=== PATIENT | female | born 1950 | race Caucasian/White ===

== ENCOUNTER 2022-09-24 10:44 | Inpatient (IN) | payer MEDICARE ==
[~2022-09-24] VITALS: Ht 170.2 cm; Wt 63.5 kg
[2022-09-24 11:24] LABS: BASOPHILS # (AUTO) 0.05 K/uL (0.00-0.20); BASOPHILS % (AUTO) 0.7 % (0.0-5.0); EOSINOPHILS # (AUTO) 0.06 K/uL (0.00-0.70); EOSINOPHILS % (AUTO) 0.8 % (0.0-8.0); IMMATURE GRANULOCYTE ABSOLUTE 0.02 K/uL (0-1); LYMPHOCYTES % (AUTO) 27.6 % (21.0-51.0); MEAN CORPUSCULAR HEMOGLOBIN 30.4 pg (27.0-33.0); MEAN CORPUSCULAR HGB CONC 32.7 g/dL (32.0-36.0); MEAN CORPUSCULAR VOLUME 92.8 fL (79-99); MONOCYTES # (AUTO) 0.8 K/uL (0.1-1.0); MONOCYTES % (AUTO) 10.9 % (3.0-13.0); NEUTROPHILS # (AUTO) 4.2 K/uL (1.8-7.7); NEUTROPHILS % (AUTO) 59.7 % (40.0-77.0); PLATELET COUNT (AUTO) 141 K/uL (130-400); RED BLOOD CELL COUNT(AUTO) 4.74 MIL/uL (4.00-5.50); RED CELL DISTRIBUTION WIDTH 12.5 % (11.0-15.5); WHITE BLOOD COUNT (AUTO) 7.1 K/uL (4.8-10.8)
[2022-09-24 11:33] LABS: CREATININE 0.9 mg/dL (0.5-1.5); POTASSIUM 4.1 mmol/L (3.5-5.1)
[2022-09-24 11:42] LABS: APPEARANCE,URINE CLEAR (CLEAR); BILIRUBIN,URINE NEGATIVE (NEGATIVE); GLUCOSE, URINE (UA) NEGATIVE (NEGATIVE); KETONES,URINE NEGATIVE (NEGATIVE); LEUKOCYTE ESTERASE ,URINE NEGATIVE Leu/uL (NEGATIVE); NITRATE,URINE NEGATIVE (NEGATIVE); OCCULT BLOOD,URINE NEGATIVE (NEGATIVE); PH,URINE 7.5 (5.0-8.0); PROTEIN,URINE NEGATIVE (NEGATIVE); UROBILINOGEN,URINE 0.2 mg/dL (0.2-1.0)
[2022-09-24 11:43] LABS: ALBUMIN 3.7 g/dL (3.5-5.0); BILIRUBIN,TOTAL 0.5 mg/dL (0.2-1.0); TOTAL PROTEIN, SERUM 7.4 g/dL (6.0-8.3)
[2022-09-24 11:45] LABS: ADD UA MICROSCOPIC NO; COLOR,URINE YELLOW (YELLOW)
[2022-09-24] MEDS ORDERED: LOSA100T59 PO (14:25)
[2022-09-24] MEDS ORDERED: METO25TA6 PO (14:25)
[2022-09-24] MEDS ORDERED: LEVE10006 PO (14:25)
[2022-09-24] MEDS ORDERED: OMEG-96 PO (14:25)
[2022-09-24] MEDS ORDERED: ROSU5TAB12 PO (14:25)
[2022-09-24] MEDS ORDERED: AMLO-257 PO (14:25)
[2022-09-24] MEDS ORDERED: LEVO75CA5 PO (14:25)
[2022-09-24] MEDS ORDERED: MAGN500C4 PO ×2 (14:25→17:26)
[2022-09-24 16:00] VITALS: BP 144/60; PULSE 71; RESP 18
[2022-09-24] MEDS ORDERED: VITA1CAP PO (17:26)
[2022-09-24] MEDS ORDERED: CA C1TAB99 PO (17:26)
[2022-09-24] MEDS ORDERED: GLUC-148 PO (17:26)
[2022-09-24] MEDS ORDERED: MELA10TA2 PO (17:26)
[2022-09-24] MEDS ORDERED: FISH1CAP27 PO (17:26)
[2022-09-24] MEDS ORDERED: CHOL500045 PO (17:26)
[2022-09-24 19:00] VITALS: BP 133/68; PULSE 39; RESP 20
[2022-09-24 19:10] VITALS: O2SAT 99
[2022-09-24] MEDS: LEVETIRACETAM 500 MG TABLET PO SCH (19:41)
[2022-09-24] MEDS: METOPROLOL TARTRATE 25 MG TAB PO SCH (19:42)
[2022-09-24] MEDS ORDERED: FISH OIL 1000 MG/CAP PO SCH (21:00)
[2022-09-24] MEDS ORDERED: ATORVASTATIN 20 MG TABLET PO SCH (21:00)
[2022-09-24 23:44] VITALS: BP 96/62; PULSE 55; RESP 20
[2022-09-25 04:00] VITALS: BP 137/74; PULSE 62; RESP 20
[2022-09-25] MEDS ORDERED: LEVOTHYROXINE 75 MCG TABLET PO SCH (06:30)
[2022-09-25 08:36] VITALS: BP 135/70; PULSE 67; RESP 20
[2022-09-25] MEDS ORDERED: AMLODIPINE 5 MG TAB PO SCH (09:00)
[2022-09-25] MEDS ORDERED: LOSARTAN 100 MG TABLET PO SCH (09:00)
[2022-09-25] MEDS: METOPROLOL TARTRATE 25 MG TAB PO SCH (09:00)
[2022-09-25] MEDS ORDERED: MAGNESIUM OXIDE 500 MG PO SCH (09:00)
[2022-09-25] MEDS: LEVETIRACETAM 500 MG TABLET PO SCH (09:03)
[2022-09-25 12:00] VITALS: BP_SYST 109; BP_SYST 95; BP_DIAS 48; BP_DIAS 59; PULSE 72; PULSE 88; RESP 20
[2022-09-25 16:00] VITALS: BP 147/65; PULSE 42; RESP 20
== END 2022-09-25 17:43 | disposition home or self-care (01) | DRG 310 ==
LOC: EDH 10:44 → EDHIP 13:23 → 4DH 16:30
PROVIDERS: ADMIT Internal Medicine; ATTEND Internal Medicine
DX: R00.2 Palpitations (principal); E03.9 Hypothyroidism, unspecified; E78.00 Pure hypercholesterolemia, unspecified; F41.9 Anxiety disorder, unspecified; G40.909 Epilepsy, unspecified, not intractable, without status epilepticus; I10 Essential (primary) hypertension
CPT/HCPCS: 36415; 71045; 80053; 81003; 82550; 83874; 84484; 85025; 93005; 93306; G0378

== ENCOUNTER → 2022-11-23 | Outpatient (CLI) | payer MEDICARE ==
[~2022-11-23] MED LIST: AMLO-257 PO; CHOL500045 PO; CLON0.5T4 PO; FISH1CAP27 PO; GLUC-148 PO; LEVE10006 PO; LEVO75CA5 PO; LOSA100T59 PO; MAGN500C4 PO; METO25TA6 PO; ROSU5TAB12 PO; VITA1CAP PO
== END | disposition home or self-care (01) ==
LOC: RAH 07:35
PROVIDERS: ATTEND Internal Medicine Interventional Cardiology
DX: M25.512 Pain in left shoulder (principal); Z95.0 Presence of cardiac pacemaker
CPT/HCPCS: 73030

== ENCOUNTER 2022-12-21 11:17 | Emergency (ER) | payer MEDICARE ==
[~2022-12-21] VITALS: Ht 170.2 cm; Wt 64.4 kg
[2022-12-21] MEDS ORDERED: ACETAMINOPHEN 325 MG TAB PO ONE (12:00)
[2022-12-21] MEDS ORDERED: METH-811 PO (13:24)
[2022-12-21 13:30] VITALS: BP 143/82; PULSE 77; RESP 18; O2SAT 98
== END 2022-12-21 13:32 | disposition home or self-care (01) ==
LOC: EDH 11:17
DX: S46.812A Strain of other muscles, fascia and tendons at shoulder and upper arm level, left arm, initial encounter (principal); I10 Essential (primary) hypertension; E78.00 Pure hypercholesterolemia, unspecified; E03.9 Hypothyroidism, unspecified; Z79.899 Other long term (current) drug therapy; Z98.890 Other specified postprocedural states; Z95.0 Presence of cardiac pacemaker; Z88.0 Allergy status to penicillin; Z88.1 Allergy status to other antibiotic agents; Z88.2 Allergy status to sulfonamides; Z88.8 Allergy status to other drugs, medicaments and biological substances; X58.XXXA Exposure to other specified factors, initial encounter; Y93.89 Activity, other specified; Y92.89 Other specified places as the place of occurrence of the external cause; Y99.8 Other external cause status
CPT/HCPCS: 73030